=== PATIENT | male | born 1945 | race Caucasian/White ===

== ENCOUNTER 2020-08-16 08:39 | Emergency (ER) | payer MEDICARE, SELFPAY ==
--- NOTE | 2020-08-16 08:44 | ED.SKABFB ---
HPI - Skin/Abscess/Foreign Bdy General Chief complaint: Skin/Abscess/Foreign Body Stated complaint: tick bite itching and cold sore Time Seen by Provider: 08/16/20 09:05 Source: patient and RN notes reviewed Mode of arrival: ambulatory Limitations: no limitations History of Present Illness HPI narrative: 75-year-old male presents concern for a tick bite to his left lower leg. Reports he was [place] in [place] on [place], on Thursday noticed a deer tick attached to his left leg. Reports he removed the tick, however reports the area is hard, slightly raised, red, tender. He denies any general malaise, fever, body aches, rash. In a separate complaint he reports he has a cold sore on his lower lip. Reports he has been applying Campho-Phenique with improvement. Denies history of cold sores in the past. MD complaint: rash Related Data Home Medications Medication Instructions Recorded Confirmed aspirin 81 mg tablet,delayed 81 mg PO DAILY 02/15/19 04/26/20 release cholecalciferol (vitamin D3) 10 400 unit PO DAILY 02/15/19 04/26/20 mcg (400 unit) chewable tablet furosemide 20 mg tablet 20 mg PO QAM 02/15/19 04/26/20 nifedipine 60 mg tablet,extended 60 mg PO DAILY 02/15/19 04/26/20 release pantoprazole 40 mg tablet,delayed 40 mg PO QAM 02/15/19 04/26/20 release simvastatin 20 mg tablet 20 mg PO DAILY 02/15/19 04/26/20 carvedilol 25 mg tablet 12.5 mg PO Q12H tablet 10/21/19 04/26/20 mecobalamin (vitamin B12) 1,000 1,000 mcg PO DAILY 10/21/19 04/26/20 mcg chewable tablet olmesartan 40 mg tablet 20 mg PO DAILY tablet 10/21/19 04/26/20 Allergies Allergy/AdvReac Type Severity Reaction Status Date / Time clopidogrel AdvReac Severe Liver Verified 08/16/20 09:14 failure Review of Systems Review of Systems: Narrative: CONSTITUTIONAL: Denies malaise, chills, sweats, or fever. CARDIOVASCULAR: Denies chest pain, palpitations, or edema. RESPIRATORY: Denies cough or dyspnea. GASTROINTESTINAL: Denies abdominal pain, nausea, vomiting, diarrhea SKIN: Denies rash or itching. Reports a red, tender area on his left lower leg where he removed a tick. Reports cold sore on his left lower lip MUSCULOSKELETAL: Denies myalgia. NEUROLOGIC: Denies headache. All systems reviewed & are unremarkable except as noted in HPI and below PMFSH Past Medical History Medical History Anxiety Benign hypertension CAD (coronary artery disease) GERD with esophagitis Hyperlipidemia Hypertension Type 2 diabetes mellitus Surgical History Surgical History History of heart artery stent History of hernia repair History of total left knee replacement (TKR) Family History Family History Father Hypertension Mother Hypertension Sibling Hypertension Social History Social History Smoking status: Never smoker Second hand tobacco smoke exposure: No Alcohol intake: never Substance use: never Substance use type: does not use Gender identity (if verbalized by the patient): Male Spiritual care concerns: Yes Agree to blood products: Yes Comments At time of signature, agree with nursing past medical, surgical, social and family history. There is no relevant family history pertinent to the presenting complaint Exam Narrative: Exam Narrative: GENERAL: Well-appearing, well-nourished, and in no acute distress. HEAD: Normocephalic, atraumatic. EYES: PERRLA, conjunctivae clear, and EOMI. ENT: Mucous membranes moist. Oropharynx without edema, erythema or lesions. NECK: Supple. No lymphadenopathy CHEST: Clear to auscultation. No respiratory distress. HEART: Regular rate and rhythm. SKIN: Warm, dry. 0.5cm raised red area with possible visible foreign body noted to the left lateral lower leg. 0.5 c
[2020-08-16 08:54] VITALS: BP 130/69; PULSE 58; RESP 20; TEMP 36.6; O2SAT 98
[2020-08-16] MEDS: LIDOCAINE, EPINEPHRINE, TETRACAINE VISCOUS SOLN 3 ML TOPICAL (09:18)
== END 2020-08-16 09:40 | disposition home or self-care (01) ==
PROVIDERS: Emergency Provider Nurse Practitioner
DX: S80.862A Insect bite (nonvenomous), left lower leg, initial encounter (principal); W57.XXXA Bitten or stung by nonvenomous insect and other nonvenomous arthropods, initial encounter; I10 Essential (primary) hypertension; K21.00 Gastro-esophageal reflux disease with esophagitis, without bleeding; E11.9 Type 2 diabetes mellitus without complications; Z95.5 Presence of coronary angioplasty implant and graft; Z96.652 Presence of left artificial knee joint
CPT/HCPCS: 99213; G0463

== ENCOUNTER 2021-02-18 02:01 | Day surgery (SDC) | payer MEDICARE, SELFPAY ==
[2021-02-18] VITALS (10 sets, daily range): BP systolic 109–148; BP diastolic 55–78; PULSE 51–70; RESP 9–16; TEMP 36–36.4; O2SAT 94–98; BMI 27.5
--- NOTE | 2021-02-18 07:15 | SUR.PREOP ---
ARRIVES AMBULATORY TO [facility] FOR SCHEDULED LHC W/ DR. GOMES. DENIES CP OR SOB, BUT REPORTS FATIGUE. ORIENTED TO ROOM, PLAN OF CARE, ORDERS. QUESTIONS ANSWERED. VOICED UNDERSTANDING. IV STARTED, LABS SENT, VS OBTAINED, PULSES CHECKED, SKIN PREPPED, CONSENT SIGNED. WILL CONTINUE TO MONITOR.
[2021-02-18 07:30] LABS: Basophils Absolute Auto 0.1 K/mm3 (0.0-0.1); Basophils Percent Auto 1.4 % (0.2-1.2); Eosinophils Absolute Auto 0.5 K/mm3 (0-0.3); Eosinophils Percent Auto 5.7 % (0-4.4); Hemoglobin 14.3 g/dL (14.0-18.0); Immature Granulocyte Absolute 0.03 K/mm3 (0.00-0.031); Immature Granulocyte Percent A 0.3 % (0-0.5); Lymphocytes Absolute Auto 2.05 K/mm3 (0.9-3.2); Lymphocytes Percent Auto 21.6 % (18.3-44.2); Mean Corpuscular Hemoglobin 29.4 pg (26-34); Mean Corpuscular Volume 86.4 fl (80-100); Mean Platelet Volume 10.6 fl (7.4-10.4); Monocytes Absolute Auto 0.8 K/mm3 (0.1-0.6); Monocytes Percent Auto 8.3 % (2.6-8.5); Neutrophils Percent Auto 62.7 % (45.5-73.1); Platelet Count Result 298 k/mm3 (150-375); Red Blood Count 4.86 M/mm3 (4.6-6.20); Red Cell Distribution Width 12.8 % (11.5-14.5); White Blood Count 9.5 K/mm3 (4.5-10.0)
[2021-02-18 07:39] LABS: Anion Gap 12 mmol/L (8-16); Blood Urea Nitrogen 22 mg/dL (9-20); Calcium 10.1 mg/dL (8.4-10.2); Carbon Dioxide 27 mmol/L (22-30); Chloride 104 mmol/L (98-107); Estimated Glomerular Filt Rate 54; Glucose 139 mg/dL (65-110); Potassium 4.4 mmol/L (3.4-5.0); Sodium 143 mmol/L (137-145)
--- NOTE | 2021-02-18 08:40 | WPDMODSED ---
Moderate Sedation Note-Pt Data Patient Data Diagnosis: Coronary artery disease with previous PCI to LAD and circumflex dyspnea? Ischemia equivalent Present Complaint: exertional shortness of breath Procedure to be performed/Plan: left heart catheterization Allergies Allergy/AdvReac Type Severity Reaction Status Date / Time clopidogrel AdvReac Severe Liver Verified 02/18/21 08:28 failure Home Medications Medication Instructions Recorded Confirmed Type aspirin 81 mg tablet,delayed 81 mg PO DAILY 02/15/19 02/18/21 History release cholecalciferol (vitamin D3) 10 400 unit PO DAILY 02/15/19 02/18/21 History mcg (400 unit) chewable tablet furosemide 20 mg tablet 20 mg PO QAM 02/15/19 02/18/21 History nifedipine 60 mg tablet,extended 60 mg PO DAILY 02/15/19 02/18/21 History release pantoprazole 40 mg tablet,delayed 40 mg PO QAM 02/15/19 02/18/21 History release simvastatin 20 mg tablet 20 mg PO HS 02/15/19 02/18/21 History blood-glucose meter #1 each 10/21/19 01/22/21 Rx carvedilol 25 mg tablet 12.5 mg PO Q12H tablet 10/21/19 02/18/21 History mecobalamin (vitamin B12) 1,000 50 mcg PO DAILY 10/21/19 02/18/21 History mcg chewable tablet olmesartan 40 mg tablet 20 mg PO DAILY tablet 10/21/19 02/18/21 History lancets #50 each 01/03/20 01/22/21 Rx blood sugar diagnostic #50 each 06/27/20 01/22/21 Rx sertraline 50 mg tablet See Rx Instructions .ROUTE 08/01/20 02/18/21 Rx .COMPLEX #90 tablet metformin 500 mg tablet,extended See Rx Instructions .ROUTE 02/06/21 02/18/21 Rx release 24 hr .COMPLEX #180 tablet alprazolam 0.25 mg PO BID PRN 02/18/21 02/18/21 History Current Medications: Active Medications Sodium Chloride (Normal Saline Iv) 500 mls @ 100 mls/hr IV CONT .Q5H HUSSAIN Sedation/Anesthesia: No previous sedation/anesthesia problems (including family history). [facility] Past Medical History Medical History Anxiety Benign hypertension CAD (coronary artery disease) GERD with esophagitis Hyperlipidemia Hypertension Type 2 diabetes mellitus Surgical History Surgical History History of heart artery stent History of hernia repair History of total left knee replacement (TKR) Family History Family History Father Hypertension Mother Hypertension Sibling Hypertension Social History Social History Smoking status: Never smoker Second hand tobacco smoke exposure: No Alcohol intake: never Substance use: never Substance use type: does not use Gender identity (if verbalized by the patient): Male Spiritual care concerns: Yes Agree to blood products: Yes Mod Sed Physical Exam Physical Exam Pre Procedural Exam: Normal: Appearance, Neck, Throat, Airway, Lungs, Heart Size, Heart Rate, Heart Rhythm, Neuro Exam and Extremities Hours since solid foods: 12 Hours since liquid intake: 12 Mallampati Classification: class II Internal Medicine - PN: Obj Da Meds/Results Medications: Active Medications Generic Name Dose Route Start Last Admin Trade Name Freq PRN Reason Stop Dose Admin Sodium Chloride 500 mls @ 100 mls/hr 02/18/21 07:00 Normal Saline Iv IV CONT .Q5H HUSSAIN Labs CBC & Chem 7: 02/18/21 07:13 02/18/21 07:13 Labs: Laboratory Results - last 24 hr 02/18/21 02/18/21 07:13 07:13 WBC 9.5 RBC 4.86 Hgb 14.3 Hct 42.0 MCV 86.4 MCH 29.4 MCHC 34.0 RDW 12.8 Plt Count 298 MPV 10.6 H Immature Gran % (Auto) 0.3 Neut % (Auto) 62.7 Lymph % (Auto) 21.6 Wells % (Auto) 8.3 Eos % (Auto) 5.7 H Baso % (Auto) 1.4 H Lymph # (Auto) 2.05 Wells # (Auto) 0.8 H Eos # (Auto) 0.5 H Baso # (Auto) 0.1 Abs Immat Gran (auto) 0.03 Absolute Neuts (auto) 6.0 Absolute Nucleated RBC
--- NOTE | 2021-02-18 09:30 | WPDCARDPROC ---
Cardiac Cath Procedure Note Date of procedure:: 02/18/21 Performing physician:: Parish Loredo MD Indication:: Exertional dyspnea? Ischemia equivalent Brief clinical history:: this is a 75-year-old man with coronary disease who has had PCI of the LAD and circumflex arteries in the remote past. He has been experiencing exertional dyspnea in an increasing pattern for about 1-2 years. Noninvasive testing has not yielded any evidence of ischemia. Because of ongoing symptoms of follow-up angiogram has been recommended for today. Procedure Procedure performed:: Left ventriculogram coronary angiogram Angio-Seal to right femoral artery Sedation/Medication given:: fentanyl 50 mg Versed 2 mg case start time 8:50 a.m. case end time 9:15 a.m. sedation provided by Bella Young RN trained observer Access site:: right femoral artery Estimated blood loss:: 15 cc Procedure note:: patient was brought to the cardiac catheterization lab in the postabsorptive state where the right femoral triangle was prepped and draped in the usual fashion. Anesthesia was given with 1% lidocaine infiltrated locally. Using the modified Seldinger technique the femoral artery was punctured and a 5 [place]amese vascular sheath was placed. After this a 5 [place]amese angled pigtail catheter was used to perform left ventriculography in the MARTIN projection and to did measure left-sided hemodynamics. Following this the pigtail catheter was removed and I used a 5 [place]amese FL4 catheter to engage and inject the left coronary artery in multiple projections. Following this the right coronary artery was engaged and injected using a 5 [place]amese JR4 catheter. Cineangiograms were then reviewed and the case was terminated. An angiogram was done of the femoral artery through the sheath after which an Angio-Seal device was deployed with a good hemostatic result. The patient tolerated procedure well there were no apparent complications. 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 Findings:: Hemodynamics: Central aortic pressure is 124 over 50 left ventricle 124/0 end-diastolic pressure 12 there is no systolic gradient on pullback across the aortic valve. Left ventricle: The LV is normal in size all segments contract appropriately the global ejection fraction is 50% by visual estimation. There were no regional wall motion abnormalities. The left main coronary artery is nicely patent the left anterior descending is a moderate caliber artery extending down to and just around the apex. The LAD and its branches show mild luminal irregularities but no significant stenosis is identified. There is visible stent material in the proximal segment of the LAD without significant loss of lumen. Circumflex is a very large caliber artery giving rise to multiple marginal branches as well as significant posterior branches. circumflex is also remarkable for mild luminal irregularities. There is stent material in a distal circumflex marginal branch, appears to be OM 3 there is no significant loss of lumen in this vessel. There is collateral filling from the circumflex to the RPDA and RPL branch. The right coronary artery is medium in caliber and dominant to the posterior circulation the right coronary artery is 100% occluded in the proximal segment. This is angiographically a chronic total occlusion. Once again the occluded vessel is well collateralized. Conclusion:: 1. Coronary artery disease with previously stented LAD and circumflex OM3 vessels that remain nicely patent today. 2. Progressive disease in the proximal RCA which has now become totally occluded with collateral filling. 3. Normal left ventricular systolic function 4. Angio-Seal to right femoral artery Parish Loredo MD [facility]
--- NOTE | 2021-02-18 13:14 | SUR.PHASEII ---
d/c instructions given to patient, pt verbalizes understanding. all questions and concerns addressed. i'v d/c tip intact. written instructions given to patient. patient transferred via wc to personal vehicle, driving
== END 2021-02-18 13:15 | disposition home or self-care (01) ==
PROVIDERS: PCP Family Medicine; Visit Provider Specialist
PROC: 4A023N7 Measurement of Cardiac Sampling and Pressure, Left Heart, Percutaneous Approach (ICD-10-PCS; CPT 93452; principal; 2021-02-18 08:30)
DX: I25.10 Atherosclerotic heart disease of native coronary artery without angina pectoris (principal); Z98.61 Coronary angioplasty status; R06.00 Dyspnea, unspecified; Z79.84 Long term (current) use of oral hypoglycemic drugs; F41.9 Anxiety disorder, unspecified; I10 Essential (primary) hypertension; K21.00 Gastro-esophageal reflux disease with esophagitis, without bleeding; E78.5 Hyperlipidemia, unspecified; E11.9 Type 2 diabetes mellitus without complications
CPT/HCPCS: 36415; 80048; 85025; 93458; C1760; C1887; C1894; G0269; J1644; J2250; J3010; J7040

== ENCOUNTER 2021-10-09 10:29 | Outpatient (CLI) | payer MEDICARE, SELFPAY ==
--- NOTE | ~2021-10-09 | US_ITS ---
US renal BI 10/09/2021 11:10 Procedure: Realtime transabdominal ultrasound of the kidneys and bladder. Indication: Chronic kidney disease Comparison: 11/18/2017 Findings: Renal echotexture is normal bilaterally without hydronephrosis, contour deforming mass or r enal calculus. There is a right renal cyst measuring 1.8 cm. The right kidney measures 10.3 cm and le ft kidney measures 10.8 cm. Bladder within normal limits. Impression: 1: Right renal cyst measuring 1.8 cm. Reviewed, dictated and finalized at location A. Impression: 1: Right renal cyst measuring 1.8 cm.
== END 2021-10-09 10:30 | disposition home or self-care (01) ==
PROVIDERS: PCP Family Medicine; Visit Provider Family Medicine
DX: N18.30 Chronic kidney disease, stage 3 unspecified (principal); N28.1 Cyst of kidney, acquired
CPT/HCPCS: 76775